=== PATIENT | male | born 1950 | race Caucasian/White ===

== ENCOUNTER 2022-07-10 20:25 | Emergency (ER) | payer OTHER, SELFPAY ==
--- NOTE | ~2022-07-10 | XR_ITS ---
EXAMINATION: XR FINGER, LEFT CLINICAL INFORMATION: Index finger wound. COMPARISON: None available. TECHNIQUE: Three views of the left index finger. FINDINGS: There is a soft tissue wound at the radial margin of the index finger. No acute underlying osseous findings. No radiodense foreign bodies or subcutaneous gas. Bone mineralization is normal. 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 No erosions. XR/XR finger LT min 2V IMPRESSION: Soft tissue wound at the index finger without acute underlying osseous abnormalities or radiodense foreign bodies.
--- NOTE | 2022-07-10 20:53 | ED_ITS ---
HPI - Extremity Injury (Upper) General Chief Complaint: Wound/Laceration Stated Complaint: Finger lac Time Seen by Provider: 07/11/22 00:00 Related Data Allergies Allergy/AdvReac Type Severity Reaction Status Date / Time honey Allergy Swelling Verified 07/10/22 20:55 PMFSH Social History Social History Advance Directives: No Advance Directives Information Provided: No Physical Exam Vital Signs: Vital Signs: Last Vital Signs Temp 98.0 F 07/11/22 00:36 Pulse 57 07/11/22 00:36 Resp 16 07/11/22 00:36 BP 145/78 H 07/11/22 00:36 Pulse Ox 96 07/11/22 00:36 O2 Del Method Room Air 07/10/22 20:55 BMI result Body Mass Index 26.3 Course Course Course Narrative: RME - 72 yo Setswana speaking male presents to the ER for evaluation of a laceration to his left index finger. He accidentally cut it with an electric saw at bout 18:30. Active oozing when bandage taken down. Will require suture repair. Tdap up to date. X-ray ordered. Reevaluation(s) Reevaluation #1: see Dr. Farris note for full assessment & treatment Medications Administered Discontinued Medications Generic Name Dose Route Start Last Admin Trade Name Freq PRN Reason Stop Dose Admin Acetaminophen 650 mg 07/11/22 00:40 07/11/22 00:52 Acetaminophen 325 Mg Tablet PO 07/11/22 00:41 650 mg ONCE ONE Administration Lidocaine HCl 6 ml 07/11/22 00:05 07/11/22 00:14 Lidocaine Hcl 2% 2 Ml Vial INFILTRATI 07/11/22 00:06 6 ml ONCE ONE Administration Discharge Plan Discharge Clinical Impression: Laceration Patient Disposition: Home, Self-Care Instructions: Finger Laceration (ED) Additional Instructions: Your stitches need to be removed in 7-10 days. Stand Alone Forms: Work/School Release Interventions: ED Discharge Assessment Last Done: 07/11/22 00:57 Discharge Date/Time: 07/11/22 00:58
[2022-07-10 20:55] VITALS: BP 167/83; PULSE 56; RESP 19; TEMP 37.2; O2SAT 99; BMI 26.3
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
--- OUTSIDE RECORDS SUMMARY | 2022-07-10 22:57 | XMS_ITS | Continuity of Care Document ---
Author Name Unknown Organization [facility] Address Unknown Care Team Providers Care Auto Roller Name Role Phone Kalyan Lemus MD Primary Care Physician [place] [facility] [place] Date(s): 02/21/21 - 03/23/21 [facility] Attending Physician: Jan Bey Admitting Physician: AdmJan [...] GIVEN VIS DATE 04/03/2011 4Admin Note: VIS / Medications baclofen 10 mg oral tablet 10 mg, 1, tablet, By Mouth, 3 times a day, Please write Bangladeshi label, # 90 tablet, Refills 1, Tot.Refills 1, Maintenance, 02/10/21 8:24:00 EST, Route to Pharmacy Electronically, [facility]., Partial fill upon patient request if the pr... Start Date: 02/10/21 Stop Date: 04/11/21 Status: Ordered diclofenac 1% topical gel 1 applicator, Topically, 3 times a day, PRN for pain, # 100 Gm, 1 Refills, Maintenance, 09/09/20 9:49:00 EDT, Gel, [facility]., Partial fill upon patient request if the prescription isfor a schedule II opioid drug., 167.5, cm, 09/09/20... Start Date: 09/09/20 Status: Ordered hydrochlorothiazide-lisinopril 12.5 mg-20 mg oral tablet See Instructions, WEI 1 TABLETA POR LA BOCA CADA HERNANDEZ, # 30 tablet, 5 Refills, Maintenance, [facility], 30, WEI 1 TABLETA POR LA BOCA CADA HERNANDEZ, 167.5, cm, 09/09/20 8:28:00 EDT, Height Start Date: 10/14/20 Status: Ordered lidocaine 5% topical film 1 patch, Topically, Daily, PRN Pain , Mild, remove after 12 hours, # 30 patch, 1 Refills, Maintenance, 04/04/20 11:50:00 EST, Film, [facility], Label in Bangladeshi., 1 patch Topically Daily,PRN:Pain , Mild,Instr:remove after 12 hours, 167... Start Date: 04/04/20 Status: Ordered omeprazole 20 mg oral enteric coated capsule 1 capsule = 20 mg, By Mouth, Daily, # 30 capsule, 2 Refills, 04/04/20 11:39:00 EST, [facility]., Label in Bangladeshi., 167.5, cm, 12/02/19 9:35:00 EDT, Height Start Date: 04/04/20 Status: Ordered Preparation H Hydrocortisone 1% topical cream See Instructions, Topically 3 times a day, # 15 Gm, 1 Refills, Maintenance, 10/18/20 10:35:00 EDT, [facility]., Label in Bangladeshi., Topically 3 times a day, 167.5, cm, 10/18/20 10:12:00EDT, Height Start Date: 10/18/20 Status: Ordered simvastatin 40 mg oral tablet 40 mg, 1, tablet, By Mouth, Daily at bedtime, Label in Bangladeshi., # 30 tablet, Refills 11, Tot. Refills 11, Maintenance, 04/04/20 11:29:00 EST, Route to Pharmacy Electronically, [facility] Label in Bangladeshi., 167.5, cm, 12/02/19 9:35:00... Start Date: 04/04/20 Stop Date: 03/30/21 Status: Ordered Tylenol 8 Hour 650 mg oral tablet, extended release 1 tablet = 650 mg, By Mouth, Every 8 hours, Print instructions in prydeinig not to exceed 4 tablets/day do not crush or chew, # 90 tablet, 1 Refills, Maintenance, 01/10/21 10:57:00 EDT, ER Tablet, [facility], Label in Bangladeshi., 167.5,... Start Date: 01/10/21 Stop Date: 03/11/21 [...]
--- OUTSIDE RECORDS SUMMARY | 2022-07-10 22:57 | XMS_ITS | Continuity of Care Document ---
Author Name Unknown Organization [facility] ion Address [address] [place] [address]- Care Team Providers Care Bottler Name Role Phone Kalyan Lemus MD Primary Care Physician [phone] [place]counter [facility] [place] Date(s): 07/07/20 - 08/06/[address] [address] Attending Physician: Jan Bey Admitting Physician: AdmtrJan [...] 30 tablet, 5 Refills, 04/04/20 11:50:00 EST, [facility], 30, WEI 1 TABLETA POR LA BOCA CADA HERNANDEZ, 167.5, cm, 12/02/19 9:35:00 EDT, Height Start Date: 04/04/20 Status: Ordered lidocaine 5% topical film 1 patch, Topically, Daily, PRN Pain , Mild, remove after 12 hours, # 30 patch, 1 Refills, Maintenance, 04/04/20 11:50:00 EST, Film, [facility], Label in Estonian., 1 patch Topically Daily,PRN:Pain , Mild,Instr:remove after 12 hours, 167... Start Date: 04/04/20 Status: Ordered omeprazole 20 mg oral enteric coated capsule 1 capsule = 20 mg, By Mouth, Daily, # 30 capsule, 2 Refills, 04/04/20 11:39:00 EST, [facility], Label in Estonian., 167.5, cm, 12/02/19 9:35:00 EDT, Height Start Date: 04/04/20 Status: Ordered simvastatin 40 mg oral tablet 40 mg, 1, tablet, By Mouth, Daily at bedtime, Label in Estonian., # 30 tablet, Refills 11, Tot. Refills 11, Maintenance, 04/04/20 11:29:00 EST, Route to Pharmacy Electronically, [facility]., Label in Estonian., 167.5, cm, 12/02/19 9:35:00... Start Date: 04/04/20 Stop Date: 03/30/21 Status: Ordered Tylenol 8 Hour 650 mg oral tablet, extended release 1 tablet = 650 mg, By Mouth, Every 6 hours, PRN as needed for pain, # 100 tablet, 1 Refills, Maintenance, 04/04/20 11:50:00 EST, ER Tablet, [facility], Label in Estonian., 167.5, cm, 12/02/19 [...]
--- OUTSIDE RECORDS SUMMARY | 2022-07-10 22:57 | XMS_ITS | Continuity of Care Document ---
Author Name Unknown Organization [facility] Address [address] [place] [id number]- Care Team Providers Care Case Worker Name Role Phone Mariah KANG, Kalyan Hernandez Primary Care Physician [facility] Date(s): 05/01/22 - 05/31/22 [facility] [address] [place] [phone]- Allergies, Adverse Reactions, Alerts No Known Medication [...] 11 Refills, Maintenance, 01/08/22 15:06:00 EDT, Tablet, [facility], Label in Sudanese., 167.5, cm, 01/08/22 14:15:00 EDT, Height, 67.5, kg, 02/21/21 8:34:00 EST, Dry Weight Start Date: 01/08/22 Stop Date: 01/03/23 Status: Ordered diclofenac 1% topical gel 1 applicator, Topically, 3 times a day, PRN for pain, # 100 Gm, 1 Refills, Maintenance, 09/09/20 9:49:00 EDT, Gel, [facility], Partial fill upon patient request if the prescription isfor a schedule II opioid drug., 167.5, cm, 09/09/20... Start Date: 09/09/20 Status: Ordered lidocaine 5% topical film 1 patch, Topically, Daily, PRN Pain , Mild, remove after 12 hours, # 30 patch, 1 Refills, Maintenance, 04/03/21 15:56:00 EST, Film, [facility]., Label in Sudanese., 1 patch Topically Daily,PRN:Pain , Mild,Instr:remove after 12 hours, 167... Start Date: 04/03/21 Status: Ordered lisinopril 20 mg oral tablet 20 mg, 1, tablet, By Mouth, Daily, Sudanese, stop HCTZ, d/c combination rx, # 30 tablet, Refills 5, Tot. Refills 5, Maintenance, 11/09/21 16:22:00 EDT, Route to Pharmacy Electronically, [facility], Partial fill upon patient request if t... Start Date: 11/09/21 Status: Ordered Mapap Arthritis Pain 650 mg oral tablet, extended release 1 tablet = 650 mg, By Mouth, Every 8 hours, # 100 tablet, 0 Refills, Maintenance, 01/08/22 15:13:00EDT, [facility]., 167.5, cm, 01/08/22 14:15:00 EDT, Height, 67.5, kg, 02/21/21 8:34:00 EST, Dry Weight Start Date: 01/08/22 Status: Ordered pantoprazole 40 mg oral delayed release tablet 1 tablet = 40 mg, By Mouth, Daily, # 30 tablet, 1 Refills, Maintenance, 05/28/22 17:25:00 EDT, EC Tablet, Label in Sudanese., 167.5, cm, 05/28/22 16:10:00 EDT, Height, 67.5, kg, 02/21/21 8:34:00 EST, Dry Weight Start Date: 05/28/22 Status: Ordered Preparation H Hydrocortisone 1% topical cream See Instructions, Topically 3 times a day, # 15 Gm, 1 Refills, Maintenance, 10/18/20 10:35:00 EDT, [facility], Label in Sudanese., Topically 3 times a day, 167.5, cm, 10/18/20 10:12:00EDT, Height Start Date: 10/18/20 Status: Ordered Voltaren 1% topical gel = 2 Gm, Topically, 4 times a day, for pain Sudanese label please, # 240 Gm, 2 Refills, Maintenance, 01/08/22 15:13:00 EDT, [facility], Partial fill upon patient request if [...] 02/2020 in - int hemorrhoids 2Done in [place], Normal [...] Personnel Name: Mariah KANG, Kalyan Hernandez Position: [facility] Primary Care Physician Member Role: PCP Address: Address: [address] [place] [address]- Care Team Related Persons Name: GUME VARGAS Name: TETO BELCHER Address: home [address] [place] [address]
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
--- OUTSIDE RECORDS SUMMARY | 2022-07-10 22:57 | XMS_ITS | Continuity of Care Document ---
Author Name Unknown Organization [facility] Address Unknown Care Team Providers Care Rehabilitation Consultant Name Role Phone Mariah KANG, Kalyan Hernandez Primary Care Physician [place] [facility] [place](s[place] 01/10/21 - 01/17/21 [facility] Encounter Diagnosis Myofascial pain syndrome(Discharge Diagnosis) - 01/10/21 Attending Physician: Rikki Verduzco MD Allergies, Adverse [...] Mouth, 3 times a day, Please write Palauan label, # 90 tablet, Refills 1, Tot.Refills 1, Maintenance, 02/10/21 8:24:00 EST, Route to Pharmacy Electronically, [facility], Partial fill upon patient request if the pr... Start Date: 02/10/21 Stop Date: 04/11/21 Status: Ordered diclofenac 1% topical gel 1 applicator, Topically, 3 times a day, PRN for pain, # 100 Gm, 1 Refills, Maintenance, 09/09/20 9:49:00 EDT, Gel, [facility], Partial fill upon patient request if the prescription isfor a schedule II opioid drug., 167.5, cm, 09/09/20... Start Date: 09/09/20 Status: Ordered hydrochlorothiazide-lisinopril 12.5 mg-20 mg oral tablet See Instructions, WEI 1 TABLETA POR [place] BOCA CADA HERNANDEZ, # 30 tablet, 5 Refills, Maintenance, [facility], 30, WEI 1 TABLETA POR LA BOCA CADA HERNANDEZ, 167.5, cm, 09/09/20 8:28:00 EDT, Height Start Date: 10/14/20 Status: Ordered lidocaine 5% topical film 1 patch, Topically, Daily, PRN Pain , Mild, remove after 12 hours, # 30 patch, 1 Refills, Maintenance, 04/04/20 11:50:00 EST, Film, [facility], Label in Palauan., 1 patch Topically Daily,PRN:Pain , Mild,Instr:remove after 12 hours, 167... Start Date: 04/04/20 Status: Ordered omeprazole 20 mg oral enteric coated capsule 1 capsule = 20 mg, By Mouth, Daily, # 30 capsule, 2 Refills, 04/04/20 11:39:00 EST, [facility]., Label in Palauan., 167.5, cm, 12/02/19 9:35:00 EDT, Height Start Date: 04/04/20 Status: Ordered Preparation H Hydrocortisone 1% topical cream See Instructions, Topically 3 times a day, # 15 Gm, 1 Refills, Maintenance, 10/18/20 10:35:00 EDT, [facility]., Label in Palauan., Topically 3 times a day, 167.5, cm, 10/18/20 10:12:00EDT, Height Start Date: 10/18/20 Status: Ordered simvastatin 40 mg oral tablet 40 mg, 1, tablet, By Mouth, Daily at bedtime, Label in Palauan., # 30 tablet, Refills 11, Tot. Refills 11, Maintenance, 04/04/20 11:29:00 EST, Route to Pharmacy Electronically, [facility]., Label in Palauan., 167.5, cm, 12/02/19 9:35:00... Start Date: 04/04/20 Stop Date: 03/30/21 Status: Ordered Tylenol 8 Hour 650 mg oral tablet, extended release 1 tablet = 650 mg, By Mouth, Every 8 hours, Print instructions in kinyarwanda not to exceed 4 tablets/day do not crush or chew, # 90 tablet, 1 Refills, Maintenance, 01/10/21 10:57:00 EDT, ER Tablet, [facility]., Label in Palauan., 167.5,... Start Date: 01/10/21 Stop Date: 03/11/21 [...] Diagnosis Diagnosis Type Effective Dates Health Status Clinical Service Informant Myofascial pain syndrome Discharge Diagnosis 01/10/21 Vital Signs Most recent to oldest [Reference Range]: 1 Height 167.50 cm (01/10/21 10:20 AM) Weight 68.1 kg (01/10/21 10:20 AM) Oxygen Saturation [94-100 %] 99 % (01/10/21 10:20 AM) Pulse Rate [55-90 bpm] 73 bpm (01/10/21 10:20 AM) Body Mass Index [18.5-24.99] 24.27 (01/10/21 10:20 AM) Blood Pressure [90-138/55-84 mm Hg] 118/ 66mm Hg (01/10/21 10:20 AM) Temperature [96.8-100.4 DegF] 97.4 DegF (01/10/21 10:20 AM) Mode of Delivery (Oxygen) Room air (01/10/21 10:20 AM) Blood pressure sites Arm, left (01/10/21 10:20 AM) Temperature Route Temporal (01/10/21 10:20 AM) Dry Weight 68.1 kg (01/10/21 10:20 AM) Social History Social History Type Response Smoking Status Never smoker entered on: 11/16/13 Sex
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
--- OUTSIDE RECORDS SUMMARY | 2022-07-10 22:57 | XMS_ITS | Continuity of Care Document ---
Author Name Unknown Organization [facility] Address [address] [place] [phone]- Care Team Providers Care Bagel Maker Name Role Phone Mariah KANG, Kalyan Hernandez Primary Care Physician [place] [facility] [place](s): 04/20/20 - 06/16/20 [facility] [address] [place] [phone]- Attending Physician: Rikki Verduzco MD Allergies, Adverse [...] 30 tablet, 5 Refills, 04/04/20 11:50:00 EST, [facility] 30, WEI 1 TABLETA POR [place] BOCA CADA HERNANDEZ, 167.5, cm, 12/02/19 9:35:00 EDT, Height Start Date: 04/04/20 Status: Ordered lidocaine 5% topical film 1 patch, Topically, Daily, PRN Pain , Mild, remove after 12 hours, # 30 patch, 1 Refills, Maintenance, 04/04/20 11:50:00 EST, Film, [facility], Label in Burkinan., 1 patch Topically Daily,PRN:Pain , Mild,Instr:remove after 12 hours, 167... Start Date: 04/04/20 Status: Ordered omeprazole 20 mg oral enteric coated capsule 1 capsule = 20 mg, By Mouth, Daily, # 30 capsule, 2 Refills, 04/04/20 11:39:00 EST, [facility], Label in Burkinan., 167.5, cm, 12/02/19 9:35:00 EDT, Height Start Date: 04/04/20 Status: Ordered simvastatin 40 mg oral tablet 40 mg, 1, tablet, By Mouth, Daily at bedtime, Label in Burkinan., # 30 tablet, Refills 11, Tot. Refills 11, Maintenance, 04/04/20 11:29:00 EST, Route to Pharmacy Electronically, [facility], Label in Burkinan., 167.5, cm, 12/02/19 9:35:00... Start Date: 04/04/20 Stop Date: 03/30/21 Status: Ordered Tylenol 8 Hour 650 mg oral tablet, extended release 1 tablet = 650 mg, By Mouth, Every 6 hours, PRN as needed for pain, # 100 tablet, 1 Refills, Maintenance, 04/04/20 11:50:00 EST, ER Tablet, [facility], Label in Burkinan., 167.5, cm, 12/02/19 9:35:00 EDT, Height Start [...]
--- OUTSIDE RECORDS SUMMARY | 2022-07-10 22:57 | XMS_ITS | Continuity of Care Document ---
Author Name Unknown Organization [facility] Address [address] [place] [id number]- Care Team Providers Care Casing Flusher Name Role Phone Mariah KANG, Kalyan Hernandez Primary Care Physician [phone] Encounter [facility] Date(s): 02/12/22 - 03/14/22 [facility] [address] [place] [address]- Attending Physician: Jan Bey Admitting Physician: AdmtrJan [...] 11 Refills, Maintenance, 01/08/22 15:06:00 EDT, Tablet, [facility]., Label in Australian., 167.5, cm, 01/08/22 14:15:00 EDT, Height, 67.5, kg, 02/21/21 8:34:00 EST, Dry Weight Start Date: 01/08/22 Stop Date: 01/03/23 Status: Ordered diclofenac 1% topical gel 1 applicator, Topically, 3 times a day, PRN for pain, # 100 Gm, 1 Refills, Maintenance, 09/09/20 9:49:00 EDT, Gel, [facility]., Partial fill upon patient request if the prescription isfor a schedule II opioid drug., 167.5, cm, 09/09/20... Start Date: 09/09/20 Status: Ordered lidocaine 5% topical film 1 patch, Topically, Daily, PRN Pain , Mild, remove after 12 hours, # 30 patch, 1 Refills, Maintenance, 04/03/21 15:56:00 EST, Film, [facility]., Label in Australian., 1 patch Topically Daily,PRN:Pain , Mild,Instr:remove after 12 hours, 167... Start Date: 04/03/21 Status: Ordered lisinopril 20 mg oral tablet 20 mg, 1, tablet, By Mouth, Daily, Australian, stop HCTZ, d/c combination rx, # 30 tablet, Refills 5, Tot. Refills 5, Maintenance, 11/09/21 16:22:00 EDT, Route to Pharmacy Electronically, [facility]., Partial fill upon patient request if t... Start Date: 11/09/21 Status: Ordered Mapap Arthritis Pain 650 mg oral tablet, extended release 1 tablet = 650 mg, By Mouth, Every 8 hours, # 100 tablet, 0 Refills, Maintenance, 01/08/22 15:13:00EDT, [facility]., 167.5, cm, 01/08/22 14:15:00 EDT, Height, 67.5, kg, 02/21/21 8:34:00 EST, Dry Weight Start Date: 01/08/22 Status: Ordered omeprazole 20 mg oral enteric coated capsule 1 capsule = 20 mg, By Mouth, Daily, Australian label please., # 30 capsule, 0 Refills, 07/24/21 8:48:00 EDT, [facility], Label in Australian., 167.5, cm, 07/24/21 8:20:00 EDT, Height, 67.5,kg, 02/21/21 8:34:00 EST, Dry Weight Start Date: 07/24/21 Status: Ordered Preparation H Hydrocortisone 1% topical cream See Instructions, Topically 3 times a day, # 15 Gm, 1 Refills, Maintenance, 10/18/20 10:35:00 EDT, [facility], Label in Australian., Topically 3 times a day, 167.5, cm, 10/18/20 10:12:00EDT, Height Start Date: 10/18/20 Status: Ordered Voltaren 1% topical gel = 2 Gm, Topically, 4 times a day, for pain Australian label please, # 240 Gm, 2 Refills, Maintenance, 01/08/22 15:13:00 EDT, [facility], Partial fill upon patient request if [...] in DR - int hemorrhoids 2Done in [place], Normal colonoscopy, result scanned into CIS 3On [...] Care Physician Member Role: PCP Address: Address: [address] [place] [address]- Care Team Related Persons Name: GUME VARGAS Name: TETO BELCHER Address: home [address] [place] [address]
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
--- OUTSIDE RECORDS SUMMARY | 2022-07-10 22:57 | XMS_ITS | Continuity of Care Document ---
Author Name Unknown Organization [facility] Address [address] [place] [address]- Care Team Providers Care Data Coordinator Name Role Phone Mariah KANG, Kalyan Hernandez Primary Care Physician [phone] Encounter [facility] Date(s): 04/17/22 - 05/17/22 [facility] [address] [place] [id number]- Allergies, Adverse Reactions, Alerts No Known Medication [...] 11 Refills, Maintenance, 01/08/22 15:06:00 EDT, Tablet, [facility], Label in Bhutanese., 167.5, cm, 01/08/22 14:15:00 EDT, Height, 67.5, kg, 02/21/21 8:34:00 EST, Dry Weight Start Date: 01/08/22 Stop Date: 01/03/23 Status: Ordered diclofenac 1% topical gel 1 applicator, Topically, 3 times a day, PRN for pain, # 100 Gm, 1 Refills, Maintenance, 09/09/20 9:49:00 EDT, Gel, [facility], Partial fill upon patient request if the prescription isfor a schedule II opioid drug., 167.5, cm, 09/09/20... Start Date: 09/09/20 Status: Ordered lidocaine 5% topical film 1 patch, Topically, Daily, PRN Pain , Mild, remove after 12 hours, # 30 patch, 1 Refills, Maintenance, 04/03/21 15:56:00 EST, Film, [facility]., Label in Bhutanese., 1 patch Topically Daily,PRN:Pain , Mild,Instr:remove after 12 hours, 167... Start Date: 04/03/21 Status: Ordered lisinopril 20 mg oral tablet 20 mg, 1, tablet, By Mouth, Daily, Bhutanese, stop HCTZ, d/c combination rx, # 30 tablet, Refills 5, Tot. Refills 5, Maintenance, 11/09/21 16:22:00 EDT, Route to Pharmacy Electronically, [facility] Partial fill upon patient request if t... Start Date: 11/09/21 Status: Ordered Mapap Arthritis Pain 650 mg oral tablet, extended release 1 tablet = 650 mg, By Mouth, Every 8 hours, # 100 tablet, 0 Refills, Maintenance, 01/08/22 15:13:00EDT, [facility]., 167.5, cm, 01/08/22 14:15:00 EDT, Height, 67.5, kg, 02/21/21 8:34:00 EST, Dry Weight Start Date: 01/08/22 Status: Ordered omeprazole 20 mg oral enteric coated capsule 1 capsule = 20 mg, By Mouth, Daily, Bhutanese label please., # 30 capsule, 0 Refills, 07/24/21 8:48:00 EDT, [facility], Label in Bhutanese., 167.5, cm, 07/24/21 8:20:00 EDT, Height, 67.5,kg, 02/21/21 8:34:00 EST, Dry Weight Start Date: 07/24/21 Status: Ordered Preparation H Hydrocortisone 1% topical cream See Instructions, Topically 3 times a day, # 15 Gm, 1 Refills, Maintenance, 10/18/20 10:35:00 EDT, [facility], Label in Bhutanese., Topically 3 times a day, 167.5, cm, 10/18/20 10:12:00EDT, Height Start Date: 10/18/20 Status: Ordered Voltaren 1% topical gel = 2 Gm, Topically, 4 times a day, for pain Bhutanese label please, # 240 Gm, 2 Refills, Maintenance, 01/08/22 15:13:00 EDT, [facility], Partial fill upon patient request if the [...] 02/2020 in - int hemorrhoids 2Done in [place], Normal [...] Personnel Name: Mariah KANG, Kalyan Hernandez Position: [facility] Primary Care Physician Member Role: PCP Address: Address: [address] [place] [address]- Care Team Related Persons Name: GUME VARGAS Name: TETO BELCHER Address: home [address] [place] [address]
--- OUTSIDE RECORDS SUMMARY | 2022-07-10 22:57 | XMS_ITS | Continuity of Care Document ---
Author Name Unknown Organization [facility] Address [address] [place] [address]- Care Team Providers Care Senior Ui Ux Designer Name Role Phone Kalyan Lemus MD Primary Care Physician [phone] Encounter [facility] Date(s): 09/08/20 - 10/08/20 [facility] [address] [place] [address]- Allergies, Adverse Reactions, Alerts No Known Medication [...] 1 Refills, Maintenance, 09/09/20 9:49:00 EDT, Gel, [facility] fill upon patient request if the prescription isfor a schedule II opioid drug., 167.5, cm, 09/09/20... Start Date: 09/09/20 Status: Ordered hydrochlorothiazide-lisinopril 12.5 mg-20 mg oral tablet See Instructions, WEI 1 TABLETA POR [place] BOCA CADA HERNANDEZ, # 30 tablet, 5 Refills, 04/04/20 11:50:00 EST, [facility] [address] 30, WEI 1 TABLETA POR LA BOCA CADA HERNANDEZ, 167.5, cm, 12/02/19 9:35:00 EDT, Height Start Date: 04/04/20 Status: Ordered lidocaine 5% topical film 1 patch, Topically, Daily, PRN Pain , Mild, remove after 12 hours, # 30 patch, 1 Refills, Maintenance, 04/04/20 11:50:00 EST, Film, [facility]., Label in Burkinan., 1 patch Topically Daily,PRN:Pain , Mild,Instr:remove after 12 hours, 167... Start Date: 04/04/20 Status: Ordered omeprazole 20 mg oral enteric coated capsule 1 capsule = 20 mg, By Mouth, Daily, # 30 capsule, 2 Refills, 04/04/20 11:39:00 EST, [facility], Label in Burkinan., 167.5, cm, 12/02/19 9:35:00 EDT, Height Start Date: 04/04/20 Status: Ordered simvastatin 40 mg oral tablet 40 mg, 1, tablet, By Mouth, Daily at bedtime, Label in Burkinan., # 30 tablet, Refills 11, Tot. Refills 11, Maintenance, 04/04/20 11:29:00 EST, Route to Pharmacy Electronically, [facility]., Label in Burkinan., 167.5, cm, 12/02/19 9:35:00... Start Date: 04/04/20 Stop Date: 03/30/21 Status: Ordered Tylenol 8 Hour 650 mg oral tablet, extended release 1 tablet = 650 mg, By Mouth, Every 6 hours, PRN as needed for pain, Print instructions in lao not to exceed 6 tablets/day do not crush or chew, # 100 tablet, 3 Refills, Maintenance, 09/09/20 9:47:00 EDT, ER Tablet, [facility], [place]... Start Date: 09/09/20 Status: Ordered Problem [...]
--- OUTSIDE RECORDS SUMMARY | 2022-07-10 22:57 | XMS_ITS | Continuity of Care Document ---
Author Name Unknown Organization [facility] Address Unknown Care Team Providers Care Carbon Sequestration Plant Engineer Name Role Phone Kalyan Lemus MD Primary Care Physician [phone] Encounter [facility] Date(s): 12/12/20 - 12/19/20 [facility] Encounter Diagnosis Strain of levator scapulae muscle(Discharge Diagnosis) - 12/12/20 Attending Physician: Rikki Verduzco MD Referring Physician: [...] 03/22 Medications baclofen 10 mg oral tablet 5 mg, 0.5, tablet, By Mouth, 3 times a day, # 45 tablet, Refills 1, Tot. Refills 1, Maintenance, 12/12/20 8:24:00 EDT, Route to Pharmacy Electronically, [facility], Partial fill upon patient request if the prescription is for a schedul... Start Date: 12/12/20 Stop Date: 02/10/21 Status: Ordered diclofenac 1% topical gel 1 applicator, Topically, 3 times a day, PRN for pain, # 100 Gm, 1 Refills, Maintenance, 09/09/20 9:49:00 EDT, Gel, [facility], Partial fill upon patient request if the prescription isfor a schedule II opioid drug., 167.5, cm, 09/09/20... Start Date: 09/09/20 Status: Ordered hydrochlorothiazide-lisinopril 12.5 mg-20 mg oral tablet See Instructions, WEI 1 TABLETA POR LA BOCA CADA HERNANDEZ, # 30 tablet, 5 Refills, Maintenance, [facility], 30, WEI 1 TABLETA POR LA BOCA CADA HERNANDEZ, 167.5, cm, 09/09/20 8:28:00 EDT, Height Start Date: 10/14/20 Status: Ordered lidocaine 5% topical film 1 patch, Topically, Daily, PRN Pain , Mild, remove after 12 hours, # 30 patch, 1 Refills, Maintenance, 04/04/20 11:50:00 EST, Film, [facility], Label in Bermudian., 1 patch Topically Daily,PRN:Pain , Mild,Instr:remove after 12 hours, 167... Start Date: 04/04/20 Status: Ordered omeprazole 20 mg oral enteric coated capsule 1 capsule = 20 mg, By Mouth, Daily, # 30 capsule, 2 Refills, 04/04/20 11:39:00 EST, [facility], Label in Bermudian., 167.5, cm, 12/02/19 9:35:00 EDT, Height Start Date: 04/04/20 Status: Ordered Preparation H Hydrocortisone 1% topical cream See Instructions, Topically 3 times a day, # 15 Gm, 1 Refills, Maintenance, 10/18/20 10:35:00 EDT, [facility], Label in Bermudian., Topically 3 times a day, 167.5, cm, 10/18/20 10:12:00EDT, Height Start Date: 10/18/20 Status: Ordered simvastatin 40 mg oral tablet 40 mg, 1, tablet, By Mouth, Daily at bedtime, Label in Bermudian., # 30 tablet, Refills 11, Tot. Refills 11, Maintenance, 04/04/20 11:29:00 EST, Route to Pharmacy Electronically, [facility]., Label in Bermudian., 167.5, cm, 12/02/19 9:35:00... Start Date: 04/04/20 Stop Date: 03/30/21 Status: Ordered Tylenol 8 Hour 650 mg oral tablet, extended release 1 tablet = 650 mg, By Mouth, Every 6 hours, PRN as needed for pain, Print instructions in greenlandic not to exceed 6 tablets/day do not crush or chew, # 100 tablet, 3 Refills, Maintenance, 09/09/20 9:47:00 EDT, ER Tablet, [facility], [place]... Start Date: 09/09/20 Status: Ordered Problem [...] Dates Health Status Cl inical Service Informant Strain of levator scapulae muscle Discharge Diagnosis 12/12/20 Social History Social History Type Response Smoking Status Never smoker entered on: 11/16/13 Sex
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
--- NOTE | 2022-07-11 00:14 | PC.NURSE ---
Dr. Farris at bedside for laceration repair.
[2022-07-11 00:36] VITALS: BP 145/78; PULSE 57; RESP 16; TEMP 36.7; O2SAT 96
--- NOTE | 2022-07-11 00:36 | ED_ITS ---
HPI - Wound/Laceration General Chief Complaint: Wound/Laceration Stated Complaint: Finger lac Time Seen by Provider: 07/11/22 00:00 Source: patient Mode of arrival: ambulatory Limitations: no limitations History of Present Illness HPI narrative: Patient comes to the emergency room complaining of a laceration to the left index finger. Patient states that he has a new chainsaw and was trying it out. Patient accidentally took the safety of and lacerated his left index. Patient is not on blood thinners, denies any other injuries. Patient states that he is up-to-date with his tetanus immunization, less than 4 years ago he had his booster. Related Data Allergies Allergy/AdvReac Type Severity Reaction Status Date / Time honey Allergy Swelling Verified 07/10/22 20:55 Review of Systems Review of Systems: Constitutional : No Weight loss, No Fever, No Chills, No Night Sweats, No Fatigue, No Malaise ENT/Mouth : No Hearing loss, No Ear Pain, No Nasal Congestion, No Sinus Pain, No Hoarseness, No sore throat, No Rhinorrhea, No Swallowing Difficulty Eyes: No Eye Pain, No Swelling, No Redness, No Foreign Body, No Discharge, No Vision Changes Cardiovascular : No Chest Pain, No SOB, No Dyspnea on Exertion, No Orthopnea, No Edema, No Palpitations Respiratory : No Cough, No Sputum, No Wheezing, No Smoke Exposure, No Dyspnea Gastrointestinal : No Nausea, No Vomiting, No Diarrhea, No Constipation, No abdominal Pain, No Hematochezia, No Melena Genitourinary : no irregular bleeding, No Dysuria, No Urinary Frequency, No Hematuria, No Urinary Incontinence, No Urgency, No Flank Pain, No Urinary Flow Changes, No Hesitancy Musculoskeletal : No joint pain, No Myalgias, No Joint Swelling Skin : Laceration to the left index finger palmar aspect Neuro : No Weakness, No Numbness, No Paresthesias, No Loss of Consciousness, No Dizziness, No Headache Psych : No Anxiety/Panic, No Depression, No SI/HI/AH/VH, No Social Issues, Heme/Lymph: No Bruising, No Bleeding,No Lymphadenopathy Endocrine : No Polyuria, No Polydipsia, No Temperature Intolerance PMFSH Social History Social History Advance Directives: No Advance Directives Information Provided: No Physical Exam Vital Signs: Vital Signs: Last Vital Signs Temp 98.9 F 07/10/22 20:55 Pulse 56 07/10/22 20:55 Resp 19 07/10/22 20:55 BP 167/83 H 07/10/22 20:55 Pulse Ox 99 07/10/22 20:55 O2 Del Method Room Air 07/10/22 20:55 BMI result Body Mass Index 26.3 Const: Other: Appearance: Alert. Oriented X3. No acute distress. Eyes: Pupils equal, round and reactive to light. ENT: Pharynx normal. Neck: Normal inspection. Neck supple. No lymph nodes noted. No crepitus CVS: Normal heart rate and rhythm. Pulses normal. Normal S1 and S2 Respiratory: No respiratory distress. Breath sounds normal. No Wheezing. No rales Abdomen: Soft and nontender. No rigidity. No distention. Skin: Skin warm and dry. Left index finger has a 3 cm laceration, irregular in the palmar aspect Extremities: No lower extremity edema. No Lacerations. No Rash Neuro: Oriented X 3. No motor deficit. No sensory deficit. Moving all extremities. No slurred speech. CN 2 through 12 grossly intact Psych: calm, cooperative, normal affect Medications Administered Discontinued Medications Generic Name Dose Route Start Last Admin Trade Name Freq PRN Reason Stop Dose Admin Lidocaine HCl 6 ml 07/11/22 00:05 07/11/22 00:14 Lidocaine Hcl 2% 2 Ml Vial INFILTRATI 07/11/22 00:06 6 ml ONCE ONE Administration Medical Decision Making Medical Decision Making [facility] Narrative: -my interpretation of x-rays: No fracture Radiology Impression Discussion of test interpretation with radiology: I have reviewed the radiologist's reading. Radiologist Impression: FINDINGS: There is a soft tissue wound at the radial margin of the index finger. No acute underlying osseous findings. No radiodense foreign bodies or subcutaneous gas. Bone mineralization is normal. 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 No erosions.? XR/XR finger LT min 2V IMPRESSION: Soft tissue wound at the index finger without acute underlying osseous abnormalities or radiodense foreign bodies. Procedures Laceration Laceration 1: Site: hand Side (If applicable): left Size (cm): 3 Description: stellate, flap and irregular Depth: simple, single layer Local Anesthetic: lidocaine 1% Amount of anesthesia used (mL): 6 Pre-repair: wound explored Skin layer closed with: nylon Size (cm): 4-0 Number of sutures: 8 Technique: simple, interrupted Discharge Plan Discharge Clinical Impression: Laceration Patient Disposition: Home, Self-Care Instructions: Finger Laceration (ED) Additional Instructions: Your stitches need to be removed in 7-10 days. Stand Alone Forms: Work/School Release
[2022-07-11] MEDS: Acetaminophen 325 MG TABLET 650 MG PO (00:52)
== END 2022-07-11 00:58 | disposition home or self-care (01) ==
PROVIDERS: Emergency Provider Emergency Medicine; PCP Internal Medicine
DX: S61.412A Laceration without foreign body of left hand, initial encounter (principal); W29.3XXA Contact with powered garden and outdoor hand tools and machinery, initial encounter; Y93.9 Activity, unspecified; Y92.9 Unspecified place or not applicable; Y99.9 Unspecified external cause status
CPT/HCPCS: 12042; 73140; 99283